=== PATIENT | male | born 1960 | race Caucasian/White ===

== ENCOUNTER 2019-06-24 17:09 | Emergency (ER) | payer BC, OTHER ==
[~2019-06-24] VITALS: Ht 170.2 cm; Wt 65.8 kg
[2019-06-24 17:11] VITALS: BP 156/77
--- NOTE | 2019-06-24 17:45 | NUR ---
PT TO ROOM 6 W/ C/O R SIDE ABOVE EYEBROW SCRAPE AND BRIDGE OF NOSE SCRAPE W/ BLOOD. NO LAC NOTED. PT AOX4. NEURO INTACT. NOT ON BLOOD THINNERS. STATES HE TRIPPED AND FELL. PT RESTING ON [employer]. DELMAR.
[2019-06-24] MEDS ORDERED: NEOSPORIN OINT. PKT 1 PACKET ONE (17:59)
[2019-06-24] MEDS ORDERED: DIPH,PERTUSS(ACELL),TET VAC/PF 0.5 ML IM-VACC ONE (18:00)
[2019-06-24] MEDS ORDERED: IBUPROFEN 600 MG TABLET PO ONE (18:00)
== END 2019-06-24 18:46 ==
LOC: ED 18:40
DX: S02.2XXA Fracture of nasal bones, initial encounter for closed fracture (principal); S09.90XA Unspecified injury of head, initial encounter; S80.211A Abrasion, right knee, initial encounter; F10.120 Alcohol abuse with intoxication, uncomplicated; E78.5 Hyperlipidemia, unspecified; E78.00 Pure hypercholesterolemia, unspecified; K21.9 Gastro-esophageal reflux disease without esophagitis; Z88.0 Allergy status to penicillin; W01.0XXA Fall on same level from slipping, tripping and stumbling without subsequent striking against object, initial encounter; Y93.01 Activity, walking, marching and hiking; Y92.59 Other trade areas as the place of occurrence of the external cause; Y99.8 Other external cause status; Y90.9 Presence of alcohol in blood, level not specified
CPT/HCPCS: 70450; 70486; 72125; 99284